=== PATIENT | female | born 1955 | race Native Hawaiian/Other Pacific Islander ===

== ENCOUNTER 2018-05-13 07:15 | Outpatient (CLI) | payer OTHER ==
[2018-05-13 07:34] LABS: PLATELET COUNT 209 K/uL (152-353)
[2018-05-13 08:02] LABS: POTASSIUM 3.9 mmol/L (3.6-5.2)
== END 2018-05-13 23:52 | disposition home or self-care (01) ==
LOC: LABW 07:15
PROVIDERS: Internal Medicine
DX: I10 Essential (primary) hypertension (principal); R53.83 Other fatigue
CPT/HCPCS: 36415; 80053; 80061; 84436; 84443; 85027

== ENCOUNTER 2018-09-15 12:43 | Emergency (ER) | payer OTHER ==
[~2018-09-15] VITALS: Ht 157.5 cm; Wt 83.5 kg
[2018-09-15 13:30] LABS: PLATELET COUNT 184 K/uL (152-353)
[2018-09-15 13:46] LABS: POTASSIUM 3.7 mmol/L (3.6-5.2)
[2018-09-15 16:40] VITALS: BP 150/80; TEMP 98.9
== END 2018-09-15 16:42 | disposition home or self-care (01) ==
LOC: ED 12:43
DX: J40 Bronchitis, not specified as acute or chronic (principal); J84.89 Other specified interstitial pulmonary diseases
CPT/HCPCS: 36415; 80053; 85027; 87502; 94664; 96365; 96375; 99284; J0456; J2930

== ENCOUNTER 2018-09-20 10:39 | Emergency (ER) | payer OTHER ==
[~2018-09-20] VITALS: Ht 157.5 cm; Wt 83.5 kg
[2018-09-20 10:50] VITALS: TEMP 97.9
[2018-09-20 11:40] LABS: POTASSIUM 3.5 mmol/L (3.6-5.2)
[2018-09-20 11:56] LABS: PLATELET COUNT 282 K/uL (152-353)
[2018-09-20 13:15] VITALS: BP 156/78
== END 2018-09-20 13:15 | disposition home or self-care (01) ==
LOC: ED 10:39
PROVIDERS: Family Medicine
DX: J40 Bronchitis, not specified as acute or chronic (principal); J32.9 Chronic sinusitis, unspecified
CPT/HCPCS: 36415; 80053; 81000; 85027; 94664; 96374; 99284; J2930

== ENCOUNTER 2019-06-23 11:25 | Outpatient (CLI) | payer OTHER | END 2019-06-23 23:00 | disposition home or self-care (01) | LOC: MAMMO 11:25 | DX: Z12.31 Encounter for screening mammogram for malignant neoplasm of breast (principal) ==

== ENCOUNTER 2021-05-29 08:59 | Outpatient (CLI) | payer OTHER | END 2021-05-29 19:02 | disposition home or self-care (01) | LOC: RAD 08:59 | PROVIDERS: ATTEND Nurse Practitioner Family | DX: H16.223 Keratoconjunctivitis sicca, not specified as Sjogren's, bilateral (principal); L40.0 Psoriasis vulgaris; M06.4 Inflammatory polyarthropathy; M62.838 Other muscle spasm; Z68.37 Body mass index [BMI] 37.0-37.9, adult ==

== ENCOUNTER 2021-07-27 12:52 | Outpatient (CLI) | payer OTHER | END 2021-07-27 20:50 | disposition home or self-care (01) | LOC: RAD 12:52 | PROVIDERS: ATTEND Nurse Practitioner Family | DX: E55.9 Vitamin D deficiency, unspecified (principal); E56.8 Deficiency of other vitamins; M06.4 Inflammatory polyarthropathy; M85.89 Other specified disorders of bone density and structure, multiple sites; Z79.899 Other long term (current) drug therapy ==

== ENCOUNTER 2022-05-01 12:16 | Outpatient (CLI) | payer OTHER | END 2022-05-01 20:02 | disposition home or self-care (01) | LOC: RAD 12:16 | PROVIDERS: ATTEND Nurse Practitioner Family | DX: E55.9 Vitamin D deficiency, unspecified (principal); M06.4 Inflammatory polyarthropathy; M85.89 Other specified disorders of bone density and structure, multiple sites; Z79.899 Other long term (current) drug therapy ==